=== PATIENT | female | born 1970 | race Caucasian/White ===

== ENCOUNTER 2020-02-03 12:44 | Inpatient (IN) | payer SELFPAY ==
[2020-02-03] VITALS (25 sets, daily range): BP systolic 101–181; BP diastolic 65–108; PULSE 91–177; RESP 14–25; TEMP 36.5–36.8; O2SAT 91–100; BMI 49.1
[2020-02-03] MEDS: ondansetron 2 mg/ML SDV 2 mL 4 MG IVP (13:20)
[2020-02-03] MEDS: adenosine 3 mg/mL SDV 2mL 6 MG IVP (13:20)
[2020-02-03] MEDS: adenosine 3 mg/mL SDV 2mL 12 MG IVP (13:28)
--- NOTE | 2020-02-03 13:29 | ECG_ITS ---
Measurements Intervals [place] Rate: 118 P: 69 MS: 154 QRS: 62 QRSD: 99 T: 91 QT: 316 QTc: 444 SINUS TACHYCARDIA WITH FREQUENT SUPRAVENTRICULAR PREMATURE COMPLEXES POSSIBLE LEFT ATRIAL ENLARGEMENT [-0.1mV P WAVE IN V1/V2] NONSPECIFIC ST & T-WAVE ABNORMALITY ABNORMAL RHYTHM ECG No previous ECG available for comparison Electronically Signed On 02-03-2020 20:34:30 CDT by Flower Blair M.D. [id number]
--- NOTE | 2020-02-03 13:29 | XR_ITS ---
WS: [id number] XR chest 1V portable [id number] REASON FOR EXAM: dyspnea/cough FINDINGS: Comparisons were made to March 20, 2009. The heart appears to be smaller. But moderately enlarged. There is scattered nodules in both bilaterally hilar regions suggesting granulomas. The lung davila are relatively clear no pneumonia, pleural effusion, pulmonary edema, are pneumothora x. XR/XR chest 1V portable [id number] IMPRESSION: No acute findings of the chest.
[2020-02-03 13:36] LABS: Basophils # 0.1 10^3/uL (0.0-0.1); Basophils % 0.5 %; Eosinophils # 0.2 10^3/uL (0.0-0.8); Eosinophils % 1.9 %; Hematocrit 47.8 % (37.0-47.0); Hemoglobin 15.8 g/dL (11.5-15.3); Lymphocytes # 4.9 10^3/uL (0.8-4.8); Lymphocytes % 42.6 %; Mean Corpuscular HGB Conc 33.1 g/dL (30.0-36.0); Mean Corpuscular Hemoglobin 29.4 pg (28.0-34.0); Mean Platelet Volume 10.7 fL (7.4-10.4); Monocytes # 0.9 10^3/uL (0.2-0.9); Monocytes % 7.5 %; Neutrophils # 5.5 10^3/uL (1.8-7.7); Neutrophils % 47.3 %; Nucleated Red Blood Cells % 0 %; Platelet Count 266 10^3/cmm (130-400); Red Blood Count 5.37 10^6/uL (4.1-5.3); Red Cell Distribution Width 12.1 % (12.1-15.1); White Blood Count 11.6 10^3/uL (4.0-10.0)
[2020-02-03] MEDS: fentaNYL 50 mcg/mL INJ 2mL IVP (13:37)
[2020-02-03] MEDS: midazolam 1 mg/mL INJ 5 ML 5 MG IV (13:38)
[2020-02-03 13:51] LABS: Alanine Aminotransferase 21 U/L (0-33); Albumin Level 3.8 g/dL (3.5-5.2); Alkaline Phosphatase 66 IU/L (35-105); Anion Gap 16.3 (5-19); Aspartate Amino Transferase 23 U/L (0-32); Blood Urea Nitrogen 9 mg/dL (6-20); Calcium 9.3 mg/dL (8.5-10.5); Carbon Dioxide 26 mmol/L (22-29); Chloride 99 mmol/L (98-107); Globulin 2.9 g/dL (1.3-4.6); Glomerular Filtration Rate 130.1 mL/min (90-130); Glucose 174 mg/dL (65-115); Osmolality Calculated 284 mOsm/kg (285-295); Potassium 4.3 mmol/L (3.5-5.1); Sodium 137 mmol/L (136-145); Total Bilirubin 0.5 mg/dL (0.15-1.2); Total Protein 6.7 g/dL (6.6-8.7)
--- NOTE | 2020-02-03 13:51 | PC.NURSE ---
Patient awake and talking following versed.
[2020-02-03 13:53] LABS: Troponin(5th) Baseline 35 ng/L (0-10)
--- NOTE | 2020-02-03 13:58 | ECG_ITS ---
Measurements Intervals [place] Rate: 177 P: MA: 0 QRS: 91 QRSD: 80 T: 77 QT: 243 QTc: 417 Atrial flutter with a 2-1 block BORDERLINE RIGHT AXIS DEVIATION [QRS AXIS > 90] ST DEPRESSION, CONSIDER SUBENDOCARDIAL INJURY [0.1+ mV ST DEPRESSION] No previous ECG available for comparison Electronically Signed On 02-03-2020 20:34:14 CDT by Flower Blair M.D. [id number]
--- NOTE | 2020-02-03 14:41 | ED_ITS ---
HPI - Chest Pain General: Chief Complaint: Chest Pain Stated Complaint: cp Time Seen by Provider: 02/03/20 13:19 History of Present Illness: HPI narrative: 49 yo female presents via POV with complaints of rapid heat rate on arrival. Pet pt this had been going on for the last 3-4 days shse had instermittently had some chest pain, although she associates it the pain as worsening wtih eating. She reports exertional dyspnea. She denies recent illness, no GI or symptoms. It seemed a little bit more pronounced today. She denies any diaphoresis or dyspnea with that. She does have a chronic baseline cough which is unchanged. She denies any recent upper respiratory symptoms or any GI or symptoms. She is never had any kind of cardiac evaluation that she can recall. He is not had any episodes like this before she is not on any blood thinner she denies any history of coronary personal history of coronary artery disease she is a lifelong smoker with 33 years. complaint: chest pain Onset (ago): day(s) Timing of current episode: constant and increasing Prior episodes: Yes Onset: during rest Pain location: substernal Severity: moderate Quality: aching Exacerbating factors: exertion and movement Associated symptoms: Reports nausea and palpitations; Deny dyspnea or fever(s) Review of Systems Const: Denies: fever(s), chills, body aches, change in appetite, fatigue or malaise ENMT: Denies: throat pain, ear or mastoid pain, nasal discharge or nasal congestion Card: Reports: palpitations Resp: Denies: dyspnea, productive cough or non-productive cough GI: Reports: nausea : Denies: flank pain, difficulty voiding, dysuria, urinary frequency or urinary urgency Skin/Breast: Denies: rash or pruritus PFSH ED PFSH: Medical History Hypertension Insulin dependent diabetes mellitus Morbid obesity Smoker Surgical History H/O foot surgery Previous section X3 Family History Mother Congestive heart failure (CHF) Lung disease COPD Denies family history of Diabetes CAD (coronary artery disease) Social History Smoking and tobacco status: current every day smoker cigarettes Packs smoked per day: 1 Alcohol intake: never Household members: spouse and children Marital status: Current occupational status: employed 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 [employer] Physical Exam Const: COMMON NORMALS: no acute distress GENERAL APPEARANCE: cooperative and comfortable ORIENTATION/CONSCIOUSNESS: Yes awake, Yes oriented to person, Yes oriented to place and Yes oriented to time HENMT: COMMON NORMALS: normocephalic, atraumatic, hearing grossly normal bilaterally, external ears normal, EAC's normal, TM's normal bilaterally, Normal nasal mucous membranes and turbinates present, moist oral mucous membranes and oropharynx normal HEAD & SCALP: normocephalic and atraumatic NOSE: Normal nasal mucous membranes and turbinates present EXTERNAL EAR: Yes external ears normal EXTERNAL AUDITORY CANAL: EAC's normal TYMPANIC MEMBRANE: TM's normal bilaterally Eye: COMMON NORMALS: Equal, round and reactive pupils present, EOMs intact bilaterally, conjunctivae normal and no scleral icterus CONJUNCTIVA: Yes conjunctivae normal PUPIL: Yes Equal, round and reactive pupils present Neck/C-Spine: COMMON NORMALS: full ROM, no lymphadenopathy, supple and no JVD Lymph: LYMPHATIC: no lymphadenopathy noted and no lymphedema noted Resp: COMMON NORMALS: normal respiratory effort, No retractions, No use of accessory muscles and clear to auscultation bilaterally AUSCULTATION: clear to auscultation bilaterally Cardio: COMMON NORMALS: no JVD and No murmurs present (Cardio) RATE: tachycardic GI: COMMON NORMALS: Soft to palpation and No hepatosplenomegaly present AUSCULTATION: Yes normoactive bowel sounds PALPATION: Yes Soft to palpation, No Tenderness to palpation present (GI), No Guarding due to palpation present (GI) and Yes No hepatosplenomegaly present Extremity: COMMON NORMALS: normal to inspection, capillary refill normal, no clubbing, cyanosis or edema, no calf tenderness and no pedal edema Neuro: SENSORIUM/ORIENTATION: Yes oriented to person, Yes oriented to place and Yes oriented to time Skin: COMMON NORMALS: no rashes or lesions noted GENERAL SKIN EXAM: no rashes or lesions noted Procedures Procedural Sedation Indication: other (Cardioversion) Preparation: lunchroom monitor applied, pulse oximeter, supplemental O2 applied, suction/airway equipment at bedside and IV secured Fentanyl dose (mcg): 50 Midazolam dose (mg): 5 Patient Tolerated Procedure: well Complications: none Course Vital Signs: Vital signs: Vital Signs Temperature 97.6 F 02/04/20 10:00 Pulse Rate 85 02/04/20 15:13 Respiratory Rate 21 H 02/04/20 15:13 Blood Pressure 149/97 02/04/20 12:00 Pulse Oximetry 97 02/04/20 15:13 MDM - Chest Pain MDM Narrative: Medical decision making narrative: Patient failed cardioversion with adenosine at 6 and 12 mg and was subsequently cardioverted with conscious sedation successfully. She cannot recall the cardioversion and she is feeling much better afterwards. We will go ahead and place patient in observation given she had a sustained episode her troponin is slightly elevated and she will need further work-up and medication adjustment to prevent further episodes. I discussed with Dr. Sharma she asked that we consult cardiology Lab Data: Labs: Lab Results 02/03/20 02/03/20 02/03/20 Range/Units 13:28 13:28 13:28 WBC 11.6 H (4.0-10.0) 10^3/ uL RBC 5.37 H (4.1-5.3) 10^6/u L Hgb 15.8 H (11.5-15.3) g/dL Hct 47.8 H (37.0-47.0) % MCV 89.0 (81-99) fL MCH 29.4 (28.0-34.0) pg MCHC 33.1 (30.0-36.0) g/dL RDW 12.1 (12.1-15.1) % Plt Count 266 (130-400) 10^3/c mm MPV 10.7 H (7.4-10.4) fL Neut % (Auto) 47.3 % Lymph % (Auto) 42.6 % [place] % (Auto) 7.5 % Eos % (Auto) 1.9 % Baso % (Auto) 0.5 % Neut # (Auto) 5.5 (1.8-7.7) 10^3/u L Lymph # (Auto) 4.9 H (0.8-4.8) 10^3/u L [place] # (Auto) 0.9 (0.2-0.9) 10^3/u L Eos # (Auto) 0.2 (0.0-0.8) 10^3/u L Baso # (Auto) 0.1 (0.0-0.1) 10^3/u L Nucleated RBC % (a uto) 0 % Nucleated RBCs # 0.0 /100WBC Sodium 137 (136-145) mmol/L Potassium 4.3 (3.5-5.1) mmol/L Chloride 99 (98-107) mmol/L Carbon Dioxide 26 (22-29) mmol/L Anion Gap 16.3 (5-19) BUN 9 (6-20) mg/dL Creatinine 0.5 (0.5-0.9) mg/dL GFR Calculation 130.1 H (90-130) mL/min Glucose 174 H (65-115) mg/dL Calculated Osmolal ity 284 L (285-295) mOsm/k g Calcium 9.3 (8.5-10.5) mg/dL Total Bilirubin 0.5 (0.15-1.2) mg/dL AST 23 (0-32) U/L ALT 21 (0-33) U/L Alkaline Phosphata se 66 (35-105) IU/L Troponin T Baselin e 35 H (0-10) ng/L Troponin T 120 Min [place] (0-10) ng/L Delta Troponin T (0-10) ABS# Total Protein 6.7 (6.6-8.7) g/dL Albumin 3.8 (3.5-5.2) g/dL Globulin 2.9 (1.3-4.6) g/dL TSH (0.27-4.20) uIU/ mL Free T4 (0.82-1.77) ng/d L 02/03/20 02/03/20 Range/Units 13:28 15:40 WBC (4.0-10.0) 10^3/ uL RBC (4.1-5.3) 10^6/u L Hgb (11.5-15.3) g/dL Hct (37.0-47.0) % MCV (81-99) fL MCH (28.0-34.0) pg MCHC (30.0-36.0) g/dL RDW (12.1-15.1) % Plt Count (130-400) 10^3/c mm MPV (7.4-10.4) fL Neut % (Auto) % Lymph % (Auto) % [place] % (Auto) % Eos % (Auto) % Baso % (Auto) % Neut # (Auto) (1.8-7.7) 10^3/u L Lymph # (Auto) (0.8-4.8) 10^3/u L [place] # (Auto) (0.2-0.9) 10^3/u L Eos # (Auto) (0.0-0.8) 10^3/u L Baso # (Auto) (0.0-0.1) 10^3/u L Nucleated RBC % (a uto) % Nucleated RBCs # /100WBC Sodium (136-145) mmol/L Potassium (3.5-5.1) mmol/L Chloride (98-107) mmol/L Carbon Dioxide (22-29) mmol/L Anion Gap (5-19) BUN (6-20) mg/dL Creatinine (0.5-0.9) mg/dL GFR Calculation (90-130) mL/min Glucose (65-115) mg/dL Calculated Osmolal ity (285-295) mOsm/k g Calcium (8.5-10.5) mg/dL Total Bilirubin (0.15-1.2) mg/dL AST (0-32) U/L ALT (0-33) U/L Alkaline Phosphata se (35-105) IU/L Troponin T Baselin e (0-10) ng/L Troponin T 120 Min [place] 43.98 H (0-10) ng/L Delta Troponin T 8.98 (0-10) ABS# Total Protein (6.6-8.7) g/dL Albumin (3.5-5.2) g/dL Globulin (1.3-4.6) g/dL TSH 0.01 L (0.27-4.20) uIU/ mL Free T4 1.89 H (0.82-1.77) ng/d L Discharge Plan Discharge Patient Disposition: Placed in Observation Admit Provider: Violetta Sharma Clinical Impression: Sustained SVT, Encounter for cardioversion procedure Condition: Stable Referrals: Rosalio Issa [Primary Care Provider] - 4-7 days (Post hospital discharge follow up. Treated for new onset atrial flutter s/p cardioversion. On BB, AC with Eliquis 02-10-2020 at 1230) Shayla Briggs MD [Physician] - 6 Weeks (Follow up on new onset arrhythmia and need for stress testing.dr briggs 03-16-2020 at 2:30) Discharge Diet: Diabetic Discharge Activity: Increase activity as tolerated Patient Instructions: Diabetes and Diet, Metoprolol (By mouth), Methimazole (By mouth), Atorvastatin (By mouth), Apixaban (By mouth), Supraventricular Tachycardia (DC), Cardioversion (DC), Basic Carbohydrate Counting (DC), Managing Diabetes During Sick Days (DC), Polysomnography (DC) Additional Instructions: -Please have sleep study done once scheduled on 03-05-2020 be [place] [facility] [place] [facility] at 8[place]. Discharge Date/Time: 02/03/20 16:50 Coding Level of Care Code ED [employer] Intermediary for Chg Fwd Exam Comprehensive
[2020-02-03 15:54] LABS: Free T4 Free Thyroxine 1.89 ng/dL (0.82-1.77); Thyroid Stimulating Hormone 0.01 uIU/mL (0.27-4.20)
[2020-02-03 16:24] LABS: Troponin 5 2HR 43.98 ng/L (0-10); Troponin 5 2HR Delta 8.98 ABS# (0-10)
--- NOTE | 2020-02-03 16:41 | P.HP_ITS ---
Providers/Chief Complaint Admitting Physician: Violetta Sharma MD Primary Care Provider: Rosalio Issa ([place]) Chief Complaint: Chest pain History of Present Illness Angela Gregory is a 49 year old female with PMHx of HTN, Morbid obesity, IDDM type II, presents from PCP office where she had presented earlier today with complaints of shortness of breath, increased heartburn, easy fatigability, shortness of breath and chest discomfort since Monday. She remembers having some intermittent palpitations overnight on Monday that resolved shortly thereafter. She felt better later in the day on Monday and most of Monday then her symptoms seem to recur primarily in terms of heartburn. Her symptoms seem to be exacerbated every time she would eat. She describes having had intermittent episodes of chest discomfort and shortness of breath previously though they typically spontaneously resolved after brief periods of time. Because of the severity and interval of her symptoms she decided to present to her primary care provider's office this morning. While there she was noted to have tachycardia with heart rates in the 170s and was advised to seek medical attention in the ER. She declined an ambulance visit and was brought by family to our facility. Tachycardia persisted on her arrival with heart rates in the 180s to 200s. Did not improve with vagal maneuvers, 2 doses of adenosine so ended up being cardioverted successfully x 1 with return to normal sinus rhythm. She did receive some conscious sedation but seemed to recover very well and is currently alert and oriented during my assessment in the ER. Is able to provide her own history in addition to what I have already been told by the ER staff. She has not been admitted to our facility before so no baseline information available for comparison. She denies having had prior cardiac issues or cardiac work-up. Work-up shows mild leukocytosis with a white count of 11.6, hemoglobin of 15.8, normal chemistry other than blood glucose of 174, vital signs are stable and she is currently normal sinus rhythm. TFTs were checked and she has low TSH, elevated free T4. Have requested cardiology consultation as this is new onset arrhythmia. She will be admitted for further management of new onset arrhythmia. Review of Systems Const: Reports: fatigue; Denies: fever(s) or chills Eyes: Denies: change in vision ENMT: Reports: dry mouth; Denies: odynophagia Card: Reports: chest pain, swelling of feet/ankles (primarily LLE) and dyspnea on exertion; Denies: palpitations, lightheadedness, syncope or pre-syncope Resp: Reports: dyspnea; Denies: productive cough or non-productive cough GI: Reports: heartburn, early satiety and bloating; Denies: abdominal pain, nausea, vomiting, hematemesis, diarrhea, constipation or hematochezia : Denies: difficulty voiding, dysuria or urinary frequency Musc: Denies: back pain Skin/Breast: Denies: rash Neuro: Denies: numbness in extremities or weakness in extremities Psych: Denies: anxiety Medications/Allergies Home Medications Medication Instructions Recorded Confirmed Last Taken Type Cbd Gummies 1 tab PO DAILY 02/03/20 02/03/20 02/03/20 History enalapril maleate 40 mg PO DAILY 02/03/20 02/03/20 02/03/20 History insulin detemir U-100 [Levemir 60 unit SUBCUT BID 02/03/20 02/03/20 Unknown History FlexTouch U-100 Insuln] insulin lispro [Humalog U-100 45 unit SUBCUT TID 02/03/20 02/03/20 Unknown History Insulin] Allergies Allergy/AdvReac Type Severity Reaction Status Date / Time Penicillins Allergy ADR-Heartbu Verified 02/03/20 13:34 rn PFSH Acute PFSH: Medical History Hypertension Insulin dependent diabetes mellitus Morbid obesity Surgical History H/O foot surgery Previous section X3 Family History Mother Congestive heart failure (CHF) Lung disease COPD Denies family history of Diabetes CAD (coronary artery disease) Social History (Updated 02/03/20 @ 16:49 by Violetta Sharma MD) Smoking and tobacco status: current every day smoker cigarettes Packs smoked pe r day: 1 Alcohol intake: never Substance/Drug Use: never Household members: spouse and children Marital status: Current occupational status: employed 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 [employer] Vitals/I&O/Wt Last Vital Signs Temp 97.7 F 02/03/20 13:21 Pulse 96 02/03/20 16:05 Resp 15 02/03/20 16:05 BP 108/78 02/03/20 16:05 Pulse Ox 93 02/03/20 16:05 Weight last 48 hrs Weight 122.016 kg Physical Exam Const: COMMON NORMALS: no acute distress, patient oriented x3 and alert GENERAL APPEARANCE: cooperative and comfortable NUTRITIONAL APPEARANCE: obese morbidly obese ORIENTATION/CONSCIOUSNESS: Yes awake HENMT: COMMON NORMALS: normocephalic, atraumatic, hearing grossly normal bilaterally and moist oral mucous membranes HEAD & SCALP: normocephalic and atraumatic Eye: COMMON NORMALS: Equal, round and reactive pupils present, EOMs intact bilaterally and conjunctivae normal CONJUNCTIVA: Yes conjunctivae normal PUPIL: Yes Equal, round and reactive pupils present Neck/C-Spine: COMMON NORMALS: full ROM GENERAL: Yes normal visual inspection and Yes trachea midline OTHER: -short, thick neck Chest: CHEST: Yes Symmetrical chest wall rise Resp: COMMON NORMALS: normal respiratory effort, No retractions, No use of accessory muscles and clear to auscultation bilaterally EFFORT & INSPECTION: Yes able to speak in complete sentences, Yes symmetric chest movement and No tachypneic AUSCULTATION: clear to auscultation bilaterally OTHER: -on RA Cardio: COMMON NORMALS: regular rate, regular rhythm, S1 normal heart sound present, S2 normal heart sound present and No murmurs present (Cardio) RATE: regular rate RHYTHM: regular rhythm HEART SOUNDS: S1 normal heart sound present and S2 normal heart sound present GI: COMMON NORMALS: Normal to inspection, nondistended, normoactive bowel sounds present, Soft to palpation and non-tender INSPECTION: Yes central obesity PALPATION: Yes Soft to palpation Extremity: COMMON NORMALS: normal to inspection, full ROM, no clubbing, cyanosis or edema and no pedal edema Neuro: COMMON NORMALS: patient oriented x3, moves all extremities, no focal motor deficits and no sensory deficits noted Psych: COMMON NORMALS: mental status grossly normal, Normal thought process present, cooperative, normal affect and speech normal SPEECH: Yes normal speech THOUGHT PROCESS: Normal thought process present Skin: COMMON NORMALS: no rashes or lesions noted, no jaundice, no petechiae and no mottling GENERAL SKIN EXAM: no rashes or lesions noted Data : 02/03/20 13:28 02/03/20 13:28 A&P Assessment and plan (1) Sustained SVT: -Symptomatic with reported chest pain, easy fatigability, shortness of breath, abdominal fullness -did not respond to vagal maneuvers or 2 doses of adenosine -Cardioverted in ER, converted to normal sinus rhythm -From history provided likely not new onset though has not required intervention before -No previous cardiac work-up on record, will order echo -Cardiology consult requested -Telemetry monitoring -Monitor vital signs -We will start on beta-herminio -Low TSH, elevated free T4 consistent with primary hyperthyroidism -Minimal leukocytosis which is likely reactive; chest x-ray unremarkable; no overt suspicion for infection Status: Acute (2) Hypertension: -Vital signs stable, continue to monitor -Resume ROZ inhibitor Status: Chronic Qualifiers: Hypertension type: essential hypertension Qualified Code(s): I10 - Essential (primary) hypertension (3) Insulin dependent diabetes mellitus: -check A1c -Accucheks, ISS, resume scheduled insulin, hypoglycemia precautions -consistent carb diet Status: Chronic (4) Hyperthyroidism: -high free T4, low TSH -new onset -could be contributing to arrhythmia; no other overt symptoms/signs -will need further evaluation and/or imaging to determine etiology Status: Acute (5) Morbid obesity: -BMI-49 kg/m2 Status: Chronic (6) Smoker: -1 PPD Status: Chronic Additional A&P Information -DVT ppx with Lovenox -up ad amauri -Dispo: home -Code status: FULL code Attestations Medical Necessity Statement*: January Bri's hospital stay will require greater than 2 midnights for management of new onset SVT status post cardioversion, needs further work-up and formal cardiology evaluation. Time Spent in Patient Care: Greater than 35 minutes (>than 50% of time spent in counselling and/or direct pt care on unit) . Coding Level of Care Code Acute [employer] Writer for Chg Fwd Diagnoses Sustained SVT I47.1 Hypertension I10 Hypertension type: essential hypertension Insulin dependent diabetes mellitus Hyperthyroidism E05.90 Morbid obesity E66.01 Smoker F17.200
[2020-02-03 17:08] LABS: Glucose Point of Care 130 mg/dL (70-110)
[2020-02-03] MEDS: enoxaparin 40 mg/0.4 mL Syringe SUBCUT (18:13)
[2020-02-03 18:36] LABS: Add Urine Microscopic? NO
[2020-02-03 19:11] LABS: Bilirubin Urine Neg (NEGATIVE); Blood Urine Neg (Negative); Glucose Urine UA Norm (Normal); Ketones Urine Negative (Negative); Leukocyte Esterase Urine Negative (Negative); Nitrate Urine Negative (Negative); Protein Urine Neg (Negative); Urine Appearance Clear (CLEAR); Urine Color Yellow (Yellow); Urobilinogen Urine 1 mg/dL (Negative); pH Urine 6 (5-7)
--- NOTE | 2020-02-03 19:29 | ECG_ITS ---
Measurements Intervals [place] Rate: 96 P: 73 GA: 148 QRS: 84 QRSD: 92 T: 123 QT: 356 QTc: 451 SINUS RHYTHM POSSIBLE LEFT ATRIAL ENLARGEMENT [-0.1mV P WAVE IN V1/V2] NONSPECIFIC ST & T-WAVE ABNORMALITY No previous ECG available for comparison Electronically Signed On 02-03-2020 20:36:40 CDT by Flower Blair M.D. [email or web address]
[2020-02-03 19:48] LABS: Troponin 5 6HR 43.47 ng/L (0-10); Troponin 5 6HR Delta 8.47 ng/L (0-12)
--- NOTE | 2020-02-03 19:52 | PM.CONSULT ---
Providers/Reason For Consult Consulting Physican/Specialty*: Dr. Meyers, cardiology Reason for Consult*: Possible supraventricular tachycardia requiring cardioversion Attending Physician: Violetta Sharma MD Primary Care Provider: Rosalio Issa History of Present Illness History of Present Illness Angela Gregory is a 49 year old female with past medical history of morbid obesity, insulin-dependent diabetes mellitus type 2 and hypertension was sent to the ER from her primary care physician's office. Patient has been having tachycardia that started on Monday. This was followed by burning chest discomfort. The burning chest discomfort continued on and off over the weekend and today she went to her primary care physician's office. It was noted to be in 170s and she was sent to the ER. Vagal maneuvers followed by adenosine 6 mg and adenosine 12 mg IV were tried without any success. Patient was successfully cardioverted with zoroastrianism of normal sinus rhythm. Normal chest x-ray and electrolytes. Low TSH and elevated free T4 without any prior history of hypo-or hyperthyroidism. At the time of evaluation patient remains in sinus rhythm to sinus tachycardia and denies having any chest discomfort or shortness of breath. I have been asked to assist in evaluating further management. Patient denies having any diarrhea, heat intolerance but does complain of long-term history of sweating. She also gives history of snoring and fatigue but denies any prior sleep study. Review of Systems Const: Denies: fever(s), chills or malaise Eyes: Denies: change in vision ENMT: Denies: nasal congestion or epistaxis Card: Reports: chest pain and palpitations; Denies: lightheadedness, dyspnea on exertion or orthopnea Resp: Denies: dyspnea, productive cough or pain on inspiration GI: Denies: abdominal pain, nausea, vomiting, hematemesis, diarrhea, constipation or hematochezia : Denies: difficulty voiding or hematuria Musc: Denies: extremity pain or extremity swelling Skin/Breast: Denies: rash Neuro: Denies: headache(s) Psych: Denies: anxiety or depression Endo: Denies: tired all the time Felix/Lymph: Denies: petechiae or purpura All/Imm: Denies: tongue swelling or facial swelling Meds/Allergies Home Medications and Allergies Home Medications Medication Instructions Recorded Confirmed Last Taken Type Cbd Gummies 1 tab PO DAILY 02/03/20 02/03/20 02/03/20 History enalapril maleate 20 mg PO DAILY 02/03/20 02/03/20 02/03/20 History insulin detemir U-100 [Levemir 60 unit SUBCUT BID 02/03/20 02/03/20 Unknown History FlexTouch U-100 Insuln] insulin lispro [Humalog U-100 35 unit SUBCUT TID 02/03/20 02/03/20 Unknown History Insulin] Allergies Allergy/AdvReac Type Severity Reaction Status Date / Time Penicillins Allergy ADR-Heartbu Verified 02/03/20 13:34 rn Current Medications Current Medications Generic Name Dose Route Start Last Admin Trade Name Freq PRN Reason Stop Dose Admin Insulin Aspart 0 unit 02/03/20 18:00 02/03/20 17:20 Novolog SUBCUT Not Given WM&BEDTIME SHARAD Protocol Insulin Detemir 60 unit 02/03/20 18:00 02/03/20 18:12 Levemir SUBCUT Not Given BID SHARAD PFSH Acute PFSH: Medical History Hypertension Insulin dependent diabetes mellitus Morbid obesity Smoker Surgical History H/O foot surgery Previous section X3 Family History Mother Congestive heart failure (CHF) Lung disease COPD Denies family history of Diabetes CAD (coronary artery disease) Social History Smoking and tobacco status: current every day smoker cigarettes Packs smoked per day: 1 Alcohol intake: never Substance/Drug Use: never Household members: spouse and children Marital status: Current occupational status: employed 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 [employer] Vitals/I&O/Wt Last Vital Signs Temp 97.7 F 02/03/20 13:21 Pulse 105 H 02/03/20 18:36 Resp 18 02/03/20 18:15 BP 118/84 02/03/20 18:15 Pulse Ox 92 02/03/20 18:36 02/03/20 02/03/20 02/03/20 06:59 14:59 22:59 Output Total 450 / 450 Balance -450 / -450 Weight last 48 hrs Weight 269 lb Physical Exam Const: COMMON NORMALS: no acute distress, patient oriented x3 and alert GENERAL APPEARANCE: cooperative, comfortable, well kempt and well hydrated HENMT: COMMON NORMALS: hearing grossly normal bilaterally, external ears normal and moist oral mucous membranes FACE & SINUS: normal facial exam EXTERNAL EAR: Yes external ears normal MOUTH: lip normal Eye: COMMON NORMALS: EOMs intact bilaterally and no scleral icterus GENERAL EYE: appearance normal, both eyes and all related structures ALIGNMENT: Yes alignment normal Neck/C-Spine: COMMON NORMALS: supple and no JVD GENERAL: Yes normal visual inspection CAROTIDS: Yes normal carotid upstroke Chest: COMMONS NORMALS: normal inspection of the chest and normal palpation of entire chest wall Resp: COMMON NORMALS: clear to auscultation bilaterally AUSCULTATION: clear to auscultation bilaterally, no crackles, no rales, no rhonchi and no wheezes Cardio: COMMON NORMALS: no JVD, regular rate, regular rhythm, S1 normal heart sound present, S2 normal heart sound present and Peripheral pulses 2+ throughout PALPATION: normal PMI RATE: regular rate RHYTHM: regular rhythm HEART SOUNDS: S1 normal heart sound present, S2 normal heart sound present, no click, no gallops and no murmurs BRUITS: no carotid bruits PERIPHERAL PULSES: Peripheral pulses 2+ throughout, radial pulses present, posterior tibial pulses present and dorsalis pedis present Extremity: GENERAL: No cyanosis, Yes edema and No pallor Neuro: COMMON NORMALS: patient oriented x3, CN's II-XII intact bilaterally and no focal motor deficits SENSORIUM/ORIENTATION: Yes alert Psych: COMMON NORMALS: Normal thought process present and speech normal APPEARANCE: Yes well kempt SPEECH: Yes normal speech MOOD & AFFECT: Yes euthymic mood THOUGHT PROCESS: Normal thought process present THOUGHT CONTENT: Yes Normal thought content present Data Labs: Other Labs: Initial EKG showed typical atrial flutter with rapid ventricular response at 177 bpm with 2 to 1 conduction. Borderline right axis deviation. EKG post cardioversion with sinus tachycardia with frequent supraventricular complexes possible left atrial enlargement and nonspecific ST-T wave abnormality. A&P Assessment and plan (1) Atrial flutter with rapid ventricular response: On reviewing the EKG it looks like atrial flutter with rapid ventricular response rather than supraventricular tachycardia. -She underwent successful cardioversion in ER with zoroastrianism of sinus rhythm. -[id number]=1/9, 1 for hypertension, 1 for diabetes and 1 for female sex. -Recommend starting on Eliquis 5 mg twice a day and low-dose beta herminio. -Currently on low-dose atenolol may have to transition to metoprolol -plan for echocardiogram. Status: Acute (2) Elevated troponin level: Baseline troponin of 35 and 2-hour troponin T of 44 and 6 are troponin I of 43. -Likely in setting of atrial flutter with rapid ventricle response. Status: Acute (3) Hypertension: Blood pressure well controlled. Status: Chronic Qualifiers: Hypertension type: essential hypertension Qualified Code(s): I10 - Essential (primary) hypertension (4) Insulin dependent diabetes mellitus: Status: Chronic (5) Morbid obesity: Status: Chronic (6) Hyperthyroidism: Status: Acute (7) Smoker: Status: Chronic Additional A&P Information Suspect sleep apnea : Plan for sleep study as an outpatient Thank you for allowing me to participate in patient's care. Please feel free to call with questions or concerns. 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
[2020-02-03 20:57] LABS: Glucose Point of Care 207 mg/dL (70-110)
[2020-02-04] VITALS (15 sets, daily range): BP systolic 106–149; BP diastolic 77–97; PULSE 80–102; RESP 13–23; TEMP 36.4–37; O2SAT 91–97
[2020-02-04] MEDS: sodium chloride 0.9% 1,000 ML 75 ML IV (00:27)
[2020-02-04 03:53] LABS: Basophils % 0.5 %; Eosinophils # 0.2 10^3/uL (0.0-0.8); Eosinophils % 2.9 %; Hematocrit 44.9 % (37.0-47.0); Hemoglobin 14.2 g/dL (11.5-15.3); Lymphocytes # 3.6 10^3/uL (0.8-4.8); Lymphocytes % 45.6 %; Mean Corpuscular HGB Conc 31.6 g/dL (30.0-36.0); Mean Corpuscular Volume 91.6 fL (81-99); Mean Platelet Volume 10.9 fL (7.4-10.4); Monocytes # 0.7 10^3/uL (0.2-0.9); Monocytes % 8.3 %; Neutrophils # 3.4 10^3/uL (1.8-7.7); Neutrophils % 42.4 %; Nucleated Red Blood Cells % 0 %; Platelet Count 219 10^3/cmm (130-400); Red Cell Distribution Width 12.3 % (12.1-15.1); White Blood Count 7.9 10^3/uL (4.0-10.0)
[2020-02-04 04:19] LABS: INR 0.97 (0.8-1.2)
[2020-02-04 04:41] LABS: Chol HDL Ratio 8.05 mg/dL (0.0-4.40); Cholesterol 177 mg/dL (0-200); HDL Cholesterol 22 mg/dL (60-100); Triglycerides 517 mg/dL (0-150)
[2020-02-04 04:49] LABS: Anion Gap 15.2 (5-19); Blood Urea Nitrogen 10 mg/dL (6-20); Carbon Dioxide 24 mmol/L (22-29); Chloride 103 mmol/L (98-107); Glomerular Filtration Rate 168.3 mL/min (90-130); Glucose 178 mg/dL (65-115); Magnesium 2.1 mg/dL (1.7-2.3); Osmolality Calculated 286 mOsm/kg (285-295); Potassium 4.2 mmol/L (3.5-5.1); Sodium 138 mmol/L (136-145)
[2020-02-04 04:51] LABS: Estmated Average Glucose 214; Hemoglobin A1C 9.1 % (4.0-6.0)
[2020-02-04 05:10] LABS: LDL Cholesterol Direct 81 mg/dL (0-100)
--- NOTE | 2020-02-04 06:00 | USCV_ITS ---
January Age: 49 Gender: F : 1970 Exam Date: 02/04/2020 06:15 Ordering Phys: Violetta Sharma MD Technologist: Adeola Chambers Exam Location: [facility] [place] Indication: Atrial flutter BP: 143 / 88 HR: 96 Rhythm: Sinus Technical Quality: Very technically difficult study MEASUREMENTS (Male / Female) Normal Values 2D ECHO LV Chamber Size 3.7 cm RV Chamber Size 1.7 cm LVOT Diameter 2.0 cm LV Ejection Fraction MOD 2C 38.2 % LV Ejection Fraction 2C AL 39.9 % LA Diameter 3.9 cm LA Width 3.0 cm LA Height 4.6 cm RA Width 3.0 cm RA Height 3.5 cm Aorta at Sinotubular Diameter 2.3 cm M-MODE Aortic Annulus Diameter 3.0 cm LA Ao Ratio MM 1.3 MV E Point Septal Separation 1.4 cm DOPPLER AV Peak Velocity 160.0 cm/s LVOT Peak Velocity 110.0 cm/s AV Area Cont Eq vti 2.5 cm squared AV Area Cont Eq pk 2.2 cm squared MV Area PHT 5.4 cm squared Mitral E to A Ratio 1.3 MV E' Velocity 11.0 cm/s Mitral E to MV E' Ratio 11.3 Mitral E to LV E' Lateral Ratio 8.9 Mitral E to LV E' Septal Ratio 15.7 TR Peak Velocity 183.0 cm/s TR Peak Gradient 13.4 mmHg TV Peak E Velocity 67.0 cm/s Right Atrial Pressure 3.0 mmHg Pulmonary Artery Systolic Pressu 16.4 mmHg PV Peak Velocity 86.0 cm/s RV Acceleration Time 0.2 s RV Ejection Time 0.3 s RV AcT/ET 0.5 FINDINGS Left Ventricle Normal left ventricular size, systolic function and wall thickness, with no regional wall motion abnormalities. Left ventricular ejection fraction is estimated at 70-75%. Normal diastolic function. Right Ventricle Normal right ventricular size and systolic function. Right ventricular systolic pressure 16.4 mmHg. Right Atrium Normal right atrial size. Left Atrium Left atrium not well visualized. Probably normal left atrial size. Mitral Valve Structurally normal mitral valve. No mitral valve stenosis. Mild mitral valve regurgitation. Aortic Valve Aortic valve not well visualized. No aortic valve stenosis. Tricuspid Valve Tricuspid valve not well visualized. Pulmonic Valve Pulmonic valve not well visualized. Pericardium No pericardial effusion. Aorta Normal aortic root. CONCLUSIONS 1. This is a technically very difficult study. Ultrasound enhancing agent (Optison) was used. 2. Normal left ventricular size, systolic function and wall thickness, with no regional wall motion abnormalities. Left ventricular ejection fraction is estimated at 70-75%. Normal diastolic function. 3. Normal right ventricle size and systolic function. 4. Normal pulmonary artery pressure. 5. Mild mitral valve regurgitation. 6. No prior similar studies to compare. Shayla Meyers MD (Electronically Signed) Final Date: 04 February 2020 10:48 S
[2020-02-04 07:18] LABS: Glucose Point of Care 192 mg/dL (70-110)
[2020-02-04] MEDS: apixaban 5 mg Tablet PO (07:35)
[2020-02-04] MEDS: metoprolol tartrate 25 mg Tablet PO (07:35)
--- NOTE | 2020-02-04 09:27 | P.PN_ITS ---
Subjective Subjective: Interval history: Rate controlled overnight, hemodynamically stable, afebrile, resolved leukocytosis, normal hemoglobin, echo pending. Started on anticoagulation with Eliquis. No acute overnight events reported, patient reports feeling much better, symptoms resolved. Medications: Reviewed: Yes Medication Review Details: Active Medications Generic Name Dose Route Start Last Admin Trade Name Freq PRN Reason Stop Dose Admin Acetaminophen 650 mg 02/03/20 17:12 Tylenol PO Q6H PRN MILD PAIN Apixaban 5 mg 02/04/20 09:00 02/04/20 07:35 Eliquis PO 5 mg BID SHARAD Administration Atorvastatin Calci um 20 mg 02/04/20 21:00 Lipitor PO BEDTIME SHARAD Dextrose 25 ml 02/03/20 17:12 D50w IVP ONCE PRN hypoglycemia prot ocol Protocol Dextrose 50 ml 02/03/20 17:12 D50w IVP PRN PRN hypoglycemia prot ocol Protocol Glucagon 1 mg 02/03/20 17:12 Glucagen IM ONCE PRN Adult Acute Hypog lycemia Prot. Protocol Dextrose 500 mls @ 100 mls /hr 02/03/20 17:12 D5w IV ONCE PRN Adult Acute Hypog lycemia Prot Protocol Sodium Chloride 1,000 mls @ 75 ml s/hr 02/03/20 17:45 02/04/20 00:27 Sodium Chloride 0.9% IV 75 mls/hr .[id number] SHARAD Administration Insulin Aspart 0 unit 02/03/20 18:00 02/04/20 07:36 Novolog SUBCUT 4 unit WM&BEDTIME SHARAD Administration Protocol Insulin Detemir 60 unit 02/03/20 18:00 02/04/20 07:36 Levemir SUBCUT 60 unit BID SHARAD Administration Methimazole 5 mg 02/04/20 09:30 Tapazole PO DAILY SHARAD Metoprolol Tartrat e 25 mg 02/04/20 09:00 02/04/20 07:35 Lopressor PO 25 mg BID SHARAD Administration Non-Formulary Medi cation 30 unit 02/03/20 21:00 02/04/20 07:19 Insulin Lispro [ Humalog U-100 Insu salo] SUBCUT Not Given TID SHARAD Ondansetron HCl 4 mg 02/03/20 17:12 Zofran IVP Q6H PRN NAUSEA AND VOMITI NG Penicillins Allergy (Verified 02/03/20 13:34) ADR-Heartburn Vitals/I&O/Wt Last Vital Signs Temp 98.6 F 02/04/20 04:00 Pulse 90 02/04/20 07:00 Resp 15 02/04/20 07:00 BP 142/86 02/04/20 08:00 Pulse Ox 93 02/04/20 07:00 02/03/20 02/04/20 02/04/20 22:59 06:59 14:59 Intake Total 240 / 240 240 / 480 240 / 240 Output Total 450 / 450 Balance -210 / -210 240 / 30 240 / 240 Weight last 48 hrs Weight 122.016 kg Physical Exam Const: COMMON NORMALS: no acute distress, patient oriented x3 and alert GENERAL APPEARANCE: cooperative and comfortable NUTRITIONAL APPEARANCE: obese morbidly obese ORIENTATION/CONSCIOUSNESS: Yes awake HENMT: COMMON NORMALS: normocephalic, atraumatic, hearing grossly normal bilaterally and moist oral mucous membranes HEAD & SCALP: normocephalic and atraumatic Eye: COMMON NORMALS: Equal, round and reactive pupils present, EOMs intact bilaterally and conjunctivae normal CONJUNCTIVA: Yes conjunctivae normal PUPIL: Yes Equal, round and reactive pupils present Neck/C-Spine: COMMON NORMALS: full ROM GENERAL: Yes normal visual inspection and Yes trachea midline OTHER: -short, thick neck Chest: CHEST: Yes Symmetrical chest wall rise Resp: COMMON NORMALS: normal respiratory effort, No retractions, No use of accessory muscles and clear to auscultation bilaterally EFFORT & INSPECTION: Yes able to speak in complete sentences, Yes symmetric chest movement and No tachypneic AUSCULTATION: clear to auscultation bilaterally OTHER: -on RA Cardio: COMMON NORMALS: regular rate, regular rhythm, S1 normal heart sound present, S2 normal heart sound present and No murmurs present (Cardio) RATE: regular rate RHYTHM: regular rhythm HEART SOUNDS: S1 normal heart sound present and S2 normal heart sound present GI: COMMON NORMALS: Normal to inspection, nondistended, normoactive bowel sounds present, Soft to palpation and non-tender INSPECTION: Yes central obesity PALPATION: Yes Soft to palpation Extremity: COMMON NORMALS: normal to inspection, full ROM, no clubbing, cyanosis or edema and no pedal edema Neuro: COMMON NORMALS: patient oriented x3, moves all extremities, no focal motor deficits and no sensory deficits noted SENSORIUM/ORIENTATION: Yes alert Psych: COMMON NORMALS: mental status grossly normal, Normal thought process present, cooperative, normal affect and speech normal SPEECH: Yes normal speech THOUGHT PROCESS: Normal thought process present Skin: COMMON NORMALS: no rashes or lesions noted, no jaundice, no petechiae and no mottling GENERAL SKIN EXAM: no rashes or lesions noted Data : 02/04/20 03:30 02/04/20 03:30 A&P Assessment and plan (1) Sustained SVT: -Symptomatic with reported chest pain, easy fatigability, shortness of breath, abdominal fullness -did not respond to vagal maneuvers or 2 doses of adenosine -Cardioverted in ER, converted to normal sinus rhythm -From history provided likely not new onset though has not required intervention before -No previous cardiac work-up on record, echo ordered; shows EF=70-75%, no RWMA, mild MR -Cardiology consult by Dr. Meyers appreciated -Telemetry monitoring -VSS; continue to monitor -on beta-herminio -Low TSH, elevated free T4 consistent with primary hyperthyroidism and with new onset arrhythmia, will start on low dose Methimazole. Will need serial TFTs, monitoring for development of pharyngitis, febrile illness -Minimal leukocytosis which is likely reactive now resolved; chest x-ray unremarkable; no overt suspicion for infection Status: Acute (2) Hypertension: -Vital signs stable, continue to monitor -resume ROZ inhibitor, BB added Status: Chronic Qualifiers: Hypertension type: essential hypertension Qualified Code(s): I10 - Essential (primary) hypertension (3) Insulin dependent diabetes mellitus: -A1c-9.1 -Accucheks, ISS, scheduled insulin, hypoglycemia precautions -consistent carb diet Status: Chronic (4) Hyperthyroidism: -high free T4, low TSH -new onset -could be contributing to arrhythmia; no other overt symptoms/signs -will need further evaluation and/or imaging to determine etiology -will start on low dose Methimazole Status: Acute (5) Morbid obesity: -BMI-49 kg/m2 -suspect underlying BRICE, sleep study as outpatient Status: Chronic (6) Smoker: -1 PPD Status: Chronic Additional A&P Information -DVT ppx with Lovenox -up ad amauri -Dispo: home -Code status: FULL code Attestations Medical Necessity Statement*: Discharge home today. Time Spent in Patient Care: 16 - 35 minutes (>than 50% of time spent in counselling and/or direct pt care on unit) . Coding Level of Care Code Acute Training Coordinator for g Fwd Exam Comprehensive Diagnoses Sustained SVT I47.1 Hypertension I10 Hypertension type: essential hypertension Insulin dependent diabetes mellitus Hyperthyroidism E05.90 Morbid obesity E66.01 Smoker F17.200
[2020-02-04] MEDS: perflutren protein-a microsphr 0.22 mg/mL SDV 3 mL IV (10:01)
[2020-02-04 11:24] LABS: Glucose Point of Care 244 mg/dL (70-110)
[2020-02-04] MEDS: methIMAzole 5 MG Tablet PO (11:56)
--- NOTE | 2020-02-04 14:10 | PM.PN ---
Subjective Subjective: Interval history: No arrhythmia on telemetry, remained in NSR/ sinus tachycardia overnight, denies any chest pain Medications: Reviewed: Yes Vitals/I&O/Wt Last Vital Signs Temp 97.6 F 02/04/20 10:00 Pulse 85 02/04/20 13:00 Resp 21 H 02/04/20 13:00 BP 149/97 02/04/20 12:00 Pulse Ox 97 02/04/20 13:00 02/03/20 02/04/20 02/04/20 22:59 06:59 14:59 Intake Total 240 / 240 240 / 480 480 / 480 Output Total 450 / 450 Balance -210 / -210 240 / 30 480 / 480 Weight last 48 hrs Weight 269 lb Physical Exam Const: COMMON NORMALS: no acute distress, patient oriented x3 and alert GENERAL APPEARANCE: cooperative, comfortable, well kempt and well hydrated HENMT: COMMON NORMALS: hearing grossly normal bilaterally and external ears normal FACE & SINUS: normal facial exam EXTERNAL EAR: Yes external ears normal MOUTH: lip normal Eye: COMMON NORMALS: EOMs intact bilaterally and no scleral icterus GENERAL EYE: appearance normal, both eyes and all related structures ALIGNMENT: Yes alignment normal Neck/C-Spine: COMMON NORMALS: supple and no JVD GENERAL: Yes normal visual inspection CAROTIDS: Yes normal carotid upstroke Chest: COMMONS NORMALS: normal inspection of the chest and normal palpation of entire chest wall Resp: COMMON NORMALS: clear to auscultation bilaterally AUSCULTATION: clear to auscultation bilaterally, no crackles, no rales, no rhonchi and no wheezes Cardio: COMMON NORMALS: no JVD, regular rate, regular rhythm, S1 normal heart sound present, S2 normal heart sound present and Peripheral pulses 2+ throughout PALPATION: normal PMI RATE: regular rate RHYTHM: regular rhythm HEART SOUNDS: S1 normal heart sound present, S2 normal heart sound present, no click, no gallops and no murmurs BRUITS: no carotid bruits PERIPHERAL PULSES: Peripheral pulses 2+ throughout, radial pulses present, posterior tibial pulses present and dorsalis pedis present Extremity: GENERAL: No cyanosis, Yes edema (trace) and No pallor Neuro: COMMON NORMALS: patient oriented x3, CN's II-XII intact bilaterally and no focal motor deficits SENSORIUM/ORIENTATION: Yes alert Psych: COMMON NORMALS: Normal thought process present and speech normal APPEARANCE: Yes well kempt SPEECH: Yes normal speech MOOD & AFFECT: Yes euthymic mood THOUGHT PROCESS: Normal thought process present THOUGHT CONTENT: Yes Normal thought content present Data : 02/04/20 03:30 02/04/20 03:30 Echo: I personally reviewed and interpreted this imaging study as follows: My impression: CONCLUSIONS 1. This is a technically very difficult study. Ultrasound enhancing agent (Optison) was used. 2. Normal left ventricular size, systolic function and wall thickness, with no regional wall motion abnormalities. Left ventricular ejection fraction is estimated at 70-75%. Normal diastolic function. 3. Normal right ventricle size and systolic function. 4. Normal pulmonary artery pressure. 5. Mild mitral valve regurgitation. 6. No prior similar studies to compare. A&P Assessment and plan (1) Atrial flutter with rapid ventricular response: On reviewing the EKG it looks like atrial flutter with rapid ventricular response rather than supraventricular tachycardia. -She underwent successful cardioversion in ER with presybeterian of sinus rhythm. -[id number]=4/9, 1 for hypertension, 1 for diabetes and 1 for female sex. -Recommend starting on Eliquis 5 mg twice a day and low-dose beta herminio. -Currently on low-dose atenolol may have to transition to metoprolol -Normal LV function on echocardiogram. -stable to be discharged home, Status: Acute (2) Hypertension: -Vital signs stable, continue to monitor -resume ROZ inhibitor, BB added Status: Chronic Qualifiers: Hypertension type: essential hypertension Qualified Code(s): I10 - Essential (primary) hypertension (3) Insulin dependent diabetes mellitus: -A1c-9.1 Status: Chronic (4) Hyperthyroidism: -high free T4, low TSH -new onset -could be contributing to arrhythmia; no other overt symptoms/signs Status: Acute (5) Morbid obesity: -BMI-49 kg/m2 Status: Chronic (6) Smoker: -1 PPD Status: Chronic Additional A&P Information suspect underlying BRICE, sleep study as outpatient Elevated troponin likely in setting of atrial flutter with RVR: discussed stress test with her She would like to hold off for now. Attestations Medical Necessity Statement*: stable to be discharged home Coding Level of Care Code Acute Cad Operator for [facility] Hitesh Diagnoses Atrial flutter with rapid ventricular response I48.92 Hypertension I10 Hypertension type: essential hypertension Insulin dependent diabetes mellitus Hyperthyroidism E05.90 Morbid obesity E66.01 Smoker F17.200
--- NOTE | 2020-02-04 14:33 | PM.DCS ---
Discharge Providers Date of Admission: 02/03/20 16:13 Date of Discharge: February 04, 2020 Attending Provider at Admission: Violetta Sharma MD Attending Provider at Discharge: Violetta Sharma MD Primary Care Provider: Rosalio Issa Diagnoses at Discharge Discharge Diagnosis (1) Sustained SVT: Status: Acute Problem details: -Symptomatic with reported chest pain, easy fatigability, shortness of breath, abdominal fullness -did not respond to vagal maneuvers or 2 doses of adenosine -Cardioverted in ER, converted to normal sinus rhythm -From history provided likely not new onset though has not required intervention before -No previous cardiac work-up on record, echo ordered; shows EF=70-75%, no RWMA, mild MR -Cardiology consult by Dr. Meyers appreciated -Telemetry monitoring -VSS; continue to monitor -on beta-herminio -Low TSH, elevated free T4 consistent with primary hyperthyroidism and with new onset arrhythmia, will start on low dose Methimazole. Will need serial TFTs, monitoring for development of pharyngitis, febrile illness -Minimal leukocytosis which is likely reactive now resolved; chest x-ray unremarkable; no overt suspicion for infection (2) Hypertension: Status: Chronic Problem details: -Vital signs stable, continue to monitor -on ROZ inhibitor, BB added Qualifiers: Hypertension type: essential hypertension Qualified Code(s): I10 - Essential (primary) hypertension (3) Insulin dependent diabetes mellitus: Status: Chronic Problem details: -A1c-9.1 -Accucheks, ISS, scheduled insulin, hypoglycemia precautions -consistent carb diet (4) Hyperthyroidism: Status: Acute Problem details: -high free T4, low TSH -new onset -could be contributing to arrhythmia; no other overt symptoms/signs -will need further evaluation and/or imaging to determine etiology -will start on low dose Methimazole (5) Morbid obesity: Status: Chronic Problem details: -BMI-49 kg/m2 -suspect underlying BRIEC, sleep study as outpatient (6) Smoker: Status: Chronic Problem details: -1 PPD Reason for Visit Reason for Visit: Chest pain Hospital Course Hospital Course: Patient presented with new onset arrhythmia that did not respond to vagal maneuvers or doses of adenosine. She was successfully cardioverted x 1 with conversion to normal sinus rhythm. She was admitted to ICU for close monitoring. Arrhythmia seems to be most consistent with atrial flutter. Due to the fact that this is a new onset finding she was evaluated by cardiology and started on anticoagulation with Eliquis and beta-blockade with metoprolol. She has not had cardiac work-up in the past so had an echo done which showed an ejection fraction of 70 to 75% with no noted regional wall motion abnormalities. She would likely benefit from sleep study to evaluate for obstructive sleep apnea which has been ordered. She will also likely need stress testing to evaluate for underlying CAD which she has opted to wait on. Discharge Summary: -Patient to follow-up with a primary care provider within 1 week -Patient to follow-up with cardiology in 1 month to re-evaluate need for stress testing -Patient to have a sleep study done once scheduled Physical Exam Const: COMMON NORMALS: no acute distress, patient oriented x3 and alert GENERAL APPEARANCE: cooperative and comfortable NUTRITIONAL APPEARANCE: obese morbidly obese ORIENTATION/CONSCIOUSNESS: Yes awake HENMT: COMMON NORMALS: normocephalic, atraumatic, hearing grossly normal bilaterally and moist oral mucous membranes HEAD & SCALP: normocephalic and atraumatic Eye: COMMON NORMALS: Equal, round and reactive pupils present, EOMs intact bilaterally and conjunctivae normal CONJUNCTIVA: Yes conjunctivae normal PUPIL: Yes Equal, round and reactive pupils present Neck/C-Spine: COMMON NORMALS: full ROM GENERAL: Yes normal visual inspection and Yes trachea midline OTHER: -short, thick neck Chest: CHEST: Yes Symmetrical chest wall rise Resp: COMMON NORMALS: normal respiratory effort, No retractions, No use of accessory muscles and clear to auscultation bilaterally EFFORT & INSPECTION: Yes able to speak in complete sentences, Yes symmetric chest movement and No tachypneic AUSCULTATION: clear to auscultation bilaterally OTHER: -on RA Cardio: COMMON NORMALS: regular rate, regular rhythm, S1 normal heart sound present, S2 normal heart sound present and No murmurs present (Cardio) RATE: regular rate RHYTHM: regular rhythm HEART SOUNDS: S1 normal heart sound present and S2 normal heart sound present GI: COMMON NORMALS: Normal to inspection, nondistended, normoactive bowel sounds present, Soft to palpation and non-tender INSPECTION: Yes central obesity PALPATION: Yes Soft to palpation Extremity: COMMON NORMALS: normal to inspection, full ROM, no clubbing, cyanosis or edema and no pedal edema Neuro: COMMON NORMALS: patient oriented x3, moves all extremities, no focal motor deficits and no sensory deficits noted SENSORIUM/ORIENTATION: Yes alert Psych: COMMON NORMALS: mental status grossly normal, Normal thought process present, cooperative, normal affect and speech normal SPEECH: Yes normal speech THOUGHT PROCESS: Normal thought process present Skin: COMMON NORMALS: no rashes or lesions noted, no jaundice, no petechiae and no mottling GENERAL SKIN EXAM: no rashes or lesions noted Discharge Data Data Completed and Pending: Completed Studies During Hospitalization Category Date Time Status XR chest 1V rohit ble [id number] Stat Exams 02/03/20 13:29 Completed CV echo wo/w cont rast [id number] Routine Ultrasound 02/04/20 06:00 Completed Labs from last 24 hours 02/04/20 02/04/20 02/04/20 11:04 07:15 03:30 WBC RBC Hgb Hct MCV MCH MCHC RDW Plt Count MPV Neut % (Auto) Lymph % (Auto) Bartholomew % (Auto) Eos % (Auto) Baso % (Auto) Neut # (Auto) Lymph # (Auto) Bartholomew # (Auto) Eos # (Auto) Baso # (Auto) Nucleated RBC % (a uto) Nucleated RBCs # PT INR Sodium Potassium Chloride Carbon Dioxide Anion Gap BUN Creatinine GFR Calculation Glucose POC Glucose 244 192 Estimat Average Gl ucose Hemoglobin A1c Calculated Osmolal ity Calcium Magnesium Troponin I 6 Hour Troponin I Hi Sens Del Troponin T 120 Min [place] Troponin T Triglycerides 517 H Cholesterol 177 LDL Cholesterol Di rect 81 HDL Cholesterol 22 L Cholesterol/HDL Ra brittany 8.05 H TSH Free T4 Urine Color Urine Appearance Urine pH Ur Specific Gravit y Urine Protein Urine Glucose (UA) Urine Ketones Urine Blood Urine Nitrate Urine Bilirubin Urine Urobilinogen Ur Leukocyte Lucia ase 02/04/20 02/04/20 02/04/20 03:30 03:30 03:30 WBC RBC Hgb Hct MCV MCH MCHC RDW Plt Count MPV Neut % (Auto) Lymph % (Auto) Bartholomew % (Auto) Eos % (Auto) Baso % (Auto) Neut # (Auto) Lymph # (Auto) Bartholomew # (Auto) Eos # (Auto) Baso # (Auto) Nucleated RBC % (a uto) Nucleated RBCs # PT 13.10 INR 0.97 Sodium 138 Potassium 4.2 Chloride 103 Carbon Dioxide 24 Anion Gap 15.2 BUN 10 Creatinine 0.4 L GFR Calculation 168.3 H Glucose 178 H POC Glucose Estimat Average Gl ucose 214 Hemoglobin A1c 9.1 H Calculated Osmolal ity 286 Calcium 9.0 Magnesium 2.1 Troponin I 6 Hour Troponin I Hi Sens Del Troponin T 120 Min [place] Troponin T Triglycerides Cholesterol LDL Cholesterol Di rect HDL Cholesterol Cholesterol/HDL Ra brittany TSH Free T4 Urine Color Urine Appearance Urine pH Ur Specific Gravit y Urine Protein Urine Glucose (UA) Urine Ketones Urine Blood Urine Nitrate Urine Bilirubin Urine Urobilinogen Ur Leukocyte Lucia ase 02/04/20 02/03/20 02/03/20 03:30 20:53 19:20 WBC 7.9 RBC 4.90 Hgb 14.2 Hct 44.9 MCV 91.6 MCH 29.0 MCHC 31.6 RDW 12.3 Plt Count 219 MPV 10.9 H Neut % (Auto) 42.4 Lymph % (Auto) 45.6 Bartholomew % (Auto) 8.3 Eos % (Auto) 2.9 Baso % (Auto) 0.5 Neut # (Auto) 3.4 Lymph # (Auto) 3.6 Bartholomew # (Auto) 0.7 Eos # (Auto) 0.2 Baso # (Auto) 0.0 Nucleated RBC % (a uto) 0 Nucleated RBCs # 0.0 PT INR Sodium Potassium Chloride Carbon Dioxide Anion Gap BUN Creatinine GFR Calculation Glucose POC Glucose 207 Estimat Average Gl ucose Hemoglobin A1c Calculated Osmolal ity Calcium Magnesium Troponin I 6 Hour 43.47 H Troponin I Hi Sens Del 8.47 Troponin T 120 Min [place] Troponin T Triglycerides Cholesterol LDL Cholesterol Di rect HDL Cholesterol Cholesterol/HDL Ra brittany TSH Free T4 Urine Color Urine Appearance Urine pH Ur Specific Gravit y Urine Protein Urine Glucose (UA) Urine Ketones Urine Blood Urine Nitrate Urine Bilirubin Urine Urobilinogen Ur Leukocyte Lucia ase 02/03/20 02/03/20 02/03/20 18:05 17:05 15:40 WBC RBC Hgb Hct MCV MCH MCHC RDW Plt Count MPV Neut % (Auto) Lymph % (Auto) Bartholomew % (Auto) Eos % (Auto) Baso % (Auto) Neut # (Auto) Lymph # (Auto) Bartholomew # (Auto) Eos # (Auto) Baso # (Auto) Nucleated RBC % (a uto) Nucleated RBCs # PT INR Sodium Potassium Chloride Carbon Dioxide Anion Gap BUN Creatinine GFR Calculation Glucose POC Glucose 130 Estimat Average Gl ucose Hemoglobin A1c Calculated Osmolal ity Calcium Magnesium Troponin I 6 Hour Troponin I Hi Sens Del Troponin T 120 Min [place] 43.98 H Delta Troponin T 8.98 Triglycerides Cholesterol LDL Cholesterol Di rect HDL Cholesterol Cholesterol/HDL Ra brittany TSH Free T4 Urine Color Yellow Urine Appearance Clear Urine pH 6 Ur Specific Gravit y 1.020 Urine Protein Neg Urine Glucose (UA) Norm Urine Ketones Negative Urine Blood Neg Urine Nitrate Negative Urine Bilirubin Neg Urine Urobilinogen 1 H Ur Leukocyte Lucia ase Negative 02/03/20 13:28 WBC RBC Hgb Hct MCV MCH MCHC RDW Plt Count MPV Neut % (Auto) Lymph % (Auto) Bartholomew % (Auto) Eos % (Auto) Baso % (Auto) Neut # (Auto) Lymph # (Auto) Bartholomew # (Auto) Eos # (Auto) Baso # (Auto) Nucleated RBC % (a uto) Nucleated RBCs # PT INR Sodium Potassium Chloride Carbon Dioxide Anion Gap BUN Creatinine GFR Calculation Glucose POC Glucose Estimat Average Gl ucose Hemoglobin A1c Calculated Osmolal ity Calcium Magnesium Troponin I 6 Hour Troponin I Hi Sens Del Troponin T 120 Min [place] Troponin T Triglycerides Cholesterol LDL Cholesterol Di rect HDL Cholesterol Cholesterol/HDL Ra brittany TSH 0.01 L Free T4 1.89 H Urine Color Urine Appearance Urine pH Ur Specific Gravit y Urine Protein Urine Glucose (UA) Urine Ketones Urine Blood Urine Nitrate Urine Bilirubin Urine Urobilinogen Ur Leukocyte Lucia ase Vitals: Last Vital Signs Temp 97.6 F 02/04/20 10:00 Pulse 85 02/04/20 13:00 Resp 21 H 02/04/20 13:00 BP 149/97 02/04/20 12:00 Pulse Ox 97 02/04/20 13:00 Discharge Plan Discharge Patient Disposition: Home, Self-Care Condition: Stable Prescriptions: New atorvastatin 40 mg Tablet 20 mg PO BEDTIME Qty: 30 RF: 0 methimazole 5 mg Tablet 5 mg PO DAILY 30 Days Qty: 30 RF: 0 Eliquis 5 mg Tablet 5 mg PO BID 30 Days Qty: 60 RF: 0 metoprolol tartrate 25 mg Tablet 25 mg PO BID 30 Days Qty: 60 RF: 0 Continued enalapril maleate 20 mg tablet 20 mg PO DAILY RF: 0 insulin lispro [Humalog U-100 Insulin] 100 unit/mL Solution 35 unit SUBCUT TID RF: 0 Levemir FlexTouch U-100 Insuln 100 unit/mL (3 mL) Insulin Pen 60 unit SUBCUT BID RF: 0 Cbd Gummies 1 tab PO DAILY RF: 0 Discharge Orders: Discharge Order (Routine); Ordered 02/04/20 Ordered By: Violetta Sharma Other Ambulatory Orders: Sleep Study W Sleep Stage (Routine) Timeframe: 1 Month Location: None Selected Ordered By: Violetta Sharma Referrals: Rosalio Issa [Primary Care Provider] - 4-7 days (Post hospital discharge follow up. Treated for new onset atrial flutter s/p cardioversion. On BB, AC with Eliquis) Shayla Meyers MD [Physician] - 6 Weeks (Follow up on new onset arrhythmia and need for stress testing.) Discharge Diet: Diabetic Discharge Activity: Increase activity as tolerated Patient Instructions: Diabetes and Diet, Metoprolol (By mouth), Methimazole (By mouth), Atorvastatin (By mouth), Apixaban (By mouth), Supraventricular Tachycardia (DC), Cardioversion (DC), Basic Carbohydrate Counting (DC), Managing Diabetes During Sick Days (DC) Activity Restrictions/Additional Instructions: -Please have sleep study done once scheduled Discharge Attestations Time Spent in Discharge Care*: greater than 30 min Specific Discharge Activities: Specific discharge activities: educating patient, discussing with pcp/other providers, discussing with briefcase sewer/social workers/dc planners, documenting/other paperwork and evaluating patient/reviewing data Status at Discharge: Cognitive status at discharge: cognitively intact, Behavioral status at discharge: cooperative, Functional status at discharge: independent ambulation Overall status at discharge: patient is progressing back to baseline Quality Metrics Clinical Quality Measures During this hospital stay, did patient experience: None Coding Level of Care Code Acute Stitch Welder for Chg Fwd Diagnoses Sustained SVT I47.1 Hypertension I10 Hypertension type: essential hypertension Insulin dependent diabetes mellitus Hyperthyroidism E05.90 Morbid obesity E66.01 Smoker F17.200
--- NOTE | 2020-02-04 15:42 | PC.NURSE ---
DISCHARGE IVs removed. Discharge instructions given and patient verbalized understanding. Prescriptions sent to [facility], [place]. 30 day pack for Eliquis given per case management. Patient escorted out via wheelchair by nurse.
== END 2020-02-04 15:44 | disposition home or self-care (01) | DRG 309 ==
LOC: ER 16:38 → ICU 16:41
PROVIDERS: Family Medicine; Admitting Provider Family Medicine; PCP Physician Assistant Medical; Visit Provider Family Medicine
DX: I47.1 Supraventricular tachycardia (principal); Z68.42 Body mass index [BMI] 45.0-49.9, adult; I48.92 Unspecified atrial flutter; I10 Essential (primary) hypertension; E66.01 Morbid (severe) obesity due to excess calories; E11.9 Type 2 diabetes mellitus without complications; Z79.4 Long term (current) use of insulin; F17.210 Nicotine dependence, cigarettes, uncomplicated; E05.90 Thyrotoxicosis, unspecified without thyrotoxic crisis or storm; I25.10 Atherosclerotic heart disease of native coronary artery without angina pectoris; J02.9 Acute pharyngitis, unspecified
CPT/HCPCS: 12345; 36415; 36416; 71045; 80048; 80053; 80061; 81003; 82962; 83036; 83721; 83735; 84439; 84443; 84484; 85025; 85610; 93005; 93306; 96372; 99283; C8929; J0153; J1650; J1815; J2250; J2405; J3010; J7030; Q9956

== ENCOUNTER 2020-05-12 09:27 | Outpatient (CLI) | payer MEDICAID, SELFPAY ==
--- NOTE | 2020-05-12 09:52 | ECG_ITS ---
[facility] Test Date: 2020-05-12 Pat Name: Angela Gregory Department: Room: Gender: Female Monotype Caster: : 1970 Requested By: Shayla Meyers Order Number: [id number] Alvares MD: Shayla Meyers M.D. Interpretive Statements NAME OF STUDY: TREADMILL STRESS ECHOCARDIOGRAM INDICATION: Shortness of Breath; Dyspnea PROCEDURE: At the baseline, the patient's blood pressure was 161/99 mm Hg with a heart rate of 111 bpm. The baseline electrocardiogram showed sinus tachycardia with normal ST-Ts. The patient exercised for 3 minutes and 16 seconds on a [standard Mack protocol. Patient attained a maximum heart rate of 150 beats per minute(88 % of the maximum predicted heart rate) with a blood pressure at the peak exercise of 234/127mm Hg. The EKG at the peak exercise revealed sinus tachycardia with no significant ST-T wave chnages. Patient did [not have any chest pain or any significant EKG changes with the exercise. The study was terminated due to SOB and achieving target heart rate. During the recovery phase, there were no new changes. Blood pressure at the end of the recovery phase was 150/44 mm Hg with a heart rate of 100 beats per minute. Echocardiographic pictures were taken at the baseline, immediately following the peak exercise and during the recovery phase. CONCLUSION: 1. Normal EKG response to treadmill exercise. 2. No exercise-induced chest pain or cardiac arrhythmia. 3. Decreased exercise tolerance, attained a maximum of 7 METs. Maximum VO2 of 24.5 ml/kg/min. 4. Please see separate report for the echocardiographic response to exercise. Electronically Signed On 05-16-2020 10:42:34 CDT by Shayla Meyers M.D. [email or web address]
[2020-05-12 09:59] VITALS: BMI 49.4
--- NOTE | 2020-05-12 10:12 | USCV_ITS ---
Bri, June Age: 49 Gender: F : 1970 Exam Date: 05/12/2020 10:13 Ordering Phys: Shayla Meyers MD [email or web address]) Technologist: Lucina Beckham [place] [facility] [place]: guillory Rhythm: Sinus Patient History: htn, dm, obesity, smoker Cardiac Medications: statin, gonzalo, beta Medications in past 24 hours: none Contrast: Stress Results Protocol: Mack Total dose(mL): Exercise Duration (min:sec): 3:16 METS: 7 Resting HR: 106 Resting BP: 161 / 99 Peak HR: 150 Peak BP: 237 / 127 Max Predicted HR: 169 89 % Max Predicted HR Target HR: 144 Double Product: [id number] Stress Summary: shortness of breath resolved during recovery BP Response: normal Reason for Termination: target heart rate reached Cardiac Symptoms: sob ECG Analysis Resting ECG: Stress ECG: Arrhythmia: MEASUREMENTS (Male/Female) Normal Values FINDINGS PROCEDURE: At the baseline, the patient's blood pressure was 161/99 mmHg with a heart rate of 87 bpm. The patient exercised for 3 minutes and 16 seconds on a standard Mack protocol. Patient attained a maximum heart rate of 150 beats per minute (89 % of the maximum predicted heart rate) with a blood pressure at the peak exercise of 237/127 mm Hg. During the recovery phase, there were no new changes. Echocardiographic pictures were taken at the baseline, immediately following the peak exercise and during the recovery phase. Baseline echocardiogram: Normal left ventricular size and systolic function with ejection fraction estimated at 60 %. No regional wall motion abnormalities. Peak exercise echocardiogram: Normal augmentation of left ventricular systolic function with exercise. No new regional wall motion abnormalities. Recovery echocardiogram: Left ventricular systolic function normalizes. No regional wall motion abnormalities. CONCLUSIONS 1. This is a treadmill stress echocardiogram. 2. Decreased exercise tolerance, attained a maximum of 7 [place] [id number] . 3. Baseline hypertension with hypertensive blood pressure and exaggerated heart rate response to exercise. 4. Normal echocardiographic response to exercise. 5. Please see separate report for the EKG portion of the study. Shayla Meyers MD (Electronically Signed) Final Date: 16 May 2020 09:03 S
[2020-05-12 10:57] VITALS: BP 150/66; PULSE 100
== END 2020-05-12 09:28 | disposition home or self-care (01) ==
LOC: CDL 09:28
PROVIDERS: PCP Physician Assistant Medical; Visit Provider Internal Medicine Cardiovascular Disease
DX: R06.00 Dyspnea, unspecified (principal)
CPT/HCPCS: 93017; 93350; 93352

== ENCOUNTER → 2020-06-12 10:55 | Outpatient (BNVA) | payer MEDICAID, SELFPAY | PROVIDERS: PCP Physician Assistant Medical; Visit Provider Internal Medicine | DX: E05.90 Thyrotoxicosis, unspecified without thyrotoxic crisis or storm (principal); E11.40 Type 2 diabetes mellitus with diabetic neuropathy, unspecified; E66.01 Morbid (severe) obesity due to excess calories; Z68.43 Body mass index [BMI] 50.0-59.9, adult; I48.3 Typical atrial flutter | CPT/HCPCS: 99204 ==

== ENCOUNTER → 2020-08-19 10:53 | Outpatient (BNVA) | payer MEDICAID, SELFPAY | PROVIDERS: PCP Physician Assistant Medical; Visit Provider Nurse Practitioner Family | DX: Z20.828 Contact with and (suspected) exposure to other viral communicable diseases (principal); J06.9 Acute upper respiratory infection, unspecified | CPT/HCPCS: 87635 ==

== ENCOUNTER → 2021-08-24 08:55 | Outpatient (BNVA) | payer MEDICAID, SELFPAY | PROVIDERS: PCP Family Medicine; Visit Provider Family Medicine | DX: I10 Essential (primary) hypertension (principal); E05.90 Thyrotoxicosis, unspecified without thyrotoxic crisis or storm; Z13.220 Encounter for screening for lipoid disorders; Z13.6 Encounter for screening for cardiovascular disorders; E11.9 Type 2 diabetes mellitus without complications; E83.42 Hypomagnesemia; G47.10 Hypersomnia, unspecified; J41.0 Simple chronic bronchitis | CPT/HCPCS: 80053; 80061; 83036; 83735; 84439; 84443; 84481; 85025 ==

== ENCOUNTER → 2021-09-17 09:45 | Outpatient (BNVA) | payer MEDICAID, SELFPAY | PROVIDERS: PCP Family Medicine; Visit Provider Internal Medicine | DX: E11.40 Type 2 diabetes mellitus with diabetic neuropathy, unspecified (principal); E05.90 Thyrotoxicosis, unspecified without thyrotoxic crisis or storm; E66.01 Morbid (severe) obesity due to excess calories; I48.3 Typical atrial flutter; F17.210 Nicotine dependence, cigarettes, uncomplicated; Z68.43 Body mass index [BMI] 50.0-59.9, adult; Z79.4 Long term (current) use of insulin | CPT/HCPCS: 99214 ==

== ENCOUNTER 2021-09-20 20:00 | Outpatient (CLI) | payer MEDICAID, SELFPAY | END 2021-09-20 20:01 | disposition home or self-care (01) | PROVIDERS: PCP Family Medicine; Visit Provider Family Medicine | DX: G47.33 Obstructive sleep apnea (adult) (pediatric) (principal) | CPT/HCPCS: 95811 ==

== ENCOUNTER → 2021-10-05 08:02 | Outpatient (BNVA) | payer MEDICAID, SELFPAY | PROVIDERS: PCP Family Medicine; Visit Provider Family Medicine | DX: E05.90 Thyrotoxicosis, unspecified without thyrotoxic crisis or storm (principal) | CPT/HCPCS: 83516; 84439; 84443; 84480 ==

== ENCOUNTER → 2021-12-03 12:32 | Outpatient (BNVA) | payer MEDICAID, SELFPAY | PROVIDERS: PCP Family Medicine; Visit Provider Emergency Medicine | DX: E66.01 Morbid (severe) obesity due to excess calories (principal); J41.0 Simple chronic bronchitis; I10 Essential (primary) hypertension; R06.02 Shortness of breath | CPT/HCPCS: 71046; 80048; 83880; 85025 ==

== ENCOUNTER 2021-12-08 06:49 | Outpatient (CLI) | payer MEDICAID, SELFPAY ==
--- NOTE | 2021-12-08 13:50 | PFTS_ITS ---
Date of Study:12/08/21 Date of Dictation: MECHANICS: Forced vital capacity (FVC) is reduced. Forced expiratory volume in one second (FEV1) is reduced. FEV1/FVC is normal. FLOW VOLUME LOOP: Reduced flow at all lung volumes without significant scooping. LUNG VOLUMES: Total lung capacity (TLC) is normal. Residual volume (RV) is normal. DIFFUSING CAPACITY FOR CARBON MONOXIDE: Normal. INTERPRETATION: The pulmonary function tests are consistent with nonspecific ventilatory limitations. The postbronchodilator spirometry is suggestive of moderate restriction however the lung volumes are normal. The patient likely has a combination of obstructive and restrictive ventilatory defects. Lung volumes are normal. Gas exchange (DLCO) is normal. MTDD
== END 2021-12-08 06:50 | disposition home or self-care (01) ==
LOC: RT 06:51
PROVIDERS: PCP Family Medicine; Visit Provider Internal Medicine Critical Care Medicine
DX: J42 Unspecified chronic bronchitis (principal); F17.210 Nicotine dependence, cigarettes, uncomplicated
CPT/HCPCS: 94060; 94726; 94729; J7611

== ENCOUNTER → 2021-12-15 08:13 | Outpatient (BNVA) | payer MEDICAID, SELFPAY | PROVIDERS: PCP Family Medicine; Visit Provider Internal Medicine | DX: E11.40 Type 2 diabetes mellitus with diabetic neuropathy, unspecified (principal); E78.2 Mixed hyperlipidemia; E05.90 Thyrotoxicosis, unspecified without thyrotoxic crisis or storm; E66.01 Morbid (severe) obesity due to excess calories; I48.3 Typical atrial flutter; R22.30 Localized swelling, mass and lump, unspecified upper limb; D03.59 Melanoma in situ of other part of trunk; Z79.4 Long term (current) use of insulin; F17.210 Nicotine dependence, cigarettes, uncomplicated; Z68.43 Body mass index [BMI] 50.0-59.9, adult | CPT/HCPCS: 80061; 83036; 83721; 84439; 84443; 84480; 99214; 99215 ==

== ENCOUNTER 2021-12-21 20:00 | Outpatient (CLI) | payer MEDICAID, SELFPAY | END 2021-12-21 20:01 | disposition home or self-care (01) | LOC: SLEEP 12-22 07:50 | PROVIDERS: PCP Family Medicine; Visit Provider Family Medicine | DX: G47.33 Obstructive sleep apnea (adult) (pediatric) (principal); G47.10 Hypersomnia, unspecified; Z68.43 Body mass index [BMI] 50.0-59.9, adult | CPT/HCPCS: 95811 ==

== ENCOUNTER → 2022-02-04 09:28 | Outpatient (BNVA) | payer MEDICAID, SELFPAY | PROVIDERS: PCP Family Medicine; Visit Provider Nurse Practitioner Family | DX: I48.3 Typical atrial flutter (principal); F17.210 Nicotine dependence, cigarettes, uncomplicated; Z79.01 Long term (current) use of anticoagulants; R06.02 Shortness of breath | CPT/HCPCS: 93005; 99213; 99214 ==

== ENCOUNTER → 2022-02-15 09:35 | Outpatient (BNVA) | payer MEDICAID, SELFPAY | PROVIDERS: PCP Family Medicine; Visit Provider Emergency Medicine | DX: M16.11 Unilateral primary osteoarthritis, right hip (principal) | CPT/HCPCS: 73502 ==

== ENCOUNTER → 2022-02-23 08:16 | Outpatient (BNVA) | payer MEDICAID, SELFPAY | PROVIDERS: PCP Family Medicine; Visit Provider Internal Medicine | DX: I48.3 Typical atrial flutter (principal); I10 Essential (primary) hypertension; E11.40 Type 2 diabetes mellitus with diabetic neuropathy, unspecified; E78.2 Mixed hyperlipidemia; E05.90 Thyrotoxicosis, unspecified without thyrotoxic crisis or storm; R22.30 Localized swelling, mass and lump, unspecified upper limb; D03.59 Melanoma in situ of other part of trunk; E66.01 Morbid (severe) obesity due to excess calories; Z68.43 Body mass index [BMI] 50.0-59.9, adult; F17.210 Nicotine dependence, cigarettes, uncomplicated; Z79.4 Long term (current) use of insulin | CPT/HCPCS: 36415; 80053; 80061; 83036; 84439; 84443; 84480; 93005; 99213; 99214 ==

== ENCOUNTER → 2022-03-03 11:07 | Outpatient (BNVA) | payer MEDICAID, SELFPAY | PROVIDERS: PCP Family Medicine; Visit Provider Internal Medicine | DX: C43.59 Malignant melanoma of other part of trunk (principal); G89.3 Neoplasm related pain (acute) (chronic); C78.02 Secondary malignant neoplasm of left lung; C79.51 Secondary malignant neoplasm of bone; Z51.11 Encounter for antineoplastic chemotherapy | CPT/HCPCS: 80053; 85025 ==

== ENCOUNTER → 2022-03-31 10:57 | Outpatient (BNVA) | payer MEDICAID, SELFPAY | PROVIDERS: PCP Family Medicine; Visit Provider Internal Medicine | DX: J90 Pleural effusion, not elsewhere classified (principal) | CPT/HCPCS: 71046 ==